=== PATIENT | male | born 1930 | race Caucasian/White ===

== ENCOUNTER → 2016-04-06 | Outpatient (CLI) | payer MEDICARE | LOC: GMAJ 17:59 | PROVIDERS: ATTEND Family Medicine | DX: N40.0 Benign prostatic hyperplasia without lower urinary tract symptoms (principal); E78.00 Pure hypercholesterolemia, unspecified ==

== ENCOUNTER → 2016-11-01 | Outpatient (CLI) | payer MEDICARE ==
--- NOTE | 2016-11-02 07:22 | CT ---
EXAM DESCRIPTION: Abdomen w/o Contrast CLINICAL HISTORY: UNSPECIFIED RENAL COLIC COMPARISON: September 30, 2015 TECHNIQUE: CT of the abdomen only was performed without IV contrast. This exam was performed according to our departmental dose-optimization program, which includes automated exposure control, adjustment of the mA and/or kV according to patient size and/or use of iterative reconstruction technique. FINDINGS: No left or right-sided urinary tract calculus is present. The distal ureters and UVJs are excluded from this exam. There are round low density lesions in both kidneys measuring up to 2.9 cm diameter. The largest of these represent cysts. The smaller lesions are too small to characterize but also probably represent cysts. Portions of the bladder are also excluded, but no bladder calculus is seen. Colonic diverticulosis is noted without apparent diverticulitis, also only partially visualized. The prostate is not included. Visualized portions of the small bowel are unremarkable. There are mural calcifications in the abdominal aorta without aneurysm. No calcified gallstone. The liver, spleen, pancreas and adrenals are unremarkable for noncontrast technique. No lung base abnormality. Cardiac pacemaker leads are partially visualized. The heart appears enlarged. 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 IMPRESSION: Probable bilateral renal cysts, but no apparent urinary tract calculus or hydronephrosis. Please note that the distal ureters and UVJs are excluded from this exam. Colonic diverticulosis without diverticulitis. Electronically signed by: Stanton Hutchins MD 11/02/2016 7:21 AM CDT
== END | disposition home or self-care (01) ==
LOC: LAB.O 08:45
PROVIDERS: ATTEND Family Medicine
DX: I10 Essential (primary) hypertension (principal); N23 Unspecified renal colic

== ENCOUNTER → 2017-04-07 | Outpatient (CLI) | payer MEDICARE | LOC: GMAJ 14:22 | PROVIDERS: ATTEND Family Medicine | DX: M10.9 Gout, unspecified (principal); Z12.5 Encounter for screening for malignant neoplasm of prostate | CPT/HCPCS: 84550; G0103 ==

== ENCOUNTER → 2017-08-04 | Outpatient (CLI) | payer MEDICARE | LOC: GMAJ 11:39 | PROVIDERS: ATTEND Family Medicine | DX: M10.9 Gout, unspecified (principal) ==